=== PATIENT | female | born 1960 | race Caucasian/White ===

== ENCOUNTER 2017-02-06 08:34 | Day surgery (SDC) | payer OTHER ==
[~2017-02-06] VITALS: Ht 149.9 cm; Wt 55.7 kg
[~2017-02-06 08:34] MED LIST: ATOR20TA17
[2017-02-06] MEDS ORDERED: OMEPRAZOLE PO (09:21)
[2017-02-06 09:30] VITALS: Ht 149.9 cm; Wt 55.7 kg
[2017-02-06 09:49] VITALS: BP 134/73; PULSE 85; RESP 16
[2017-02-06] MEDS ORDERED: MIDAZOLAM 1 MG/ML 2 ML INJ ONE ×2 (11:10)
[2017-02-06] MEDS ORDERED: FENTAnyl 50 MCG/ML VIAL ONE (11:10)
--- NOTE | 2017-02-06 11:10 | OPPN ---
Date/Time of Note Date/Time of Note DATE: 02/06/17 TIME: 11:08 Operative Report Preoperative Diagnosis Abdominal pain Chronic heartburn Screening colonoscopy Postoperative Diagnosis Gastroesophageal reflux disease Gastritis with erosions Internal hemorrhoids No colon neoplasm is identified Operation/Procedure Performed Esophagogastroduodenoscopy and biopsy Colonoscopy ] Surgeon see signature line security assistant None Anesthesia: moderate sedation Estimated blood loss: none Transfusion Required none Specimen Gastric mucosal biopsy Grafts/Implants none Complications none NAN DIAZ MD Feb 06, 2017 11:10
[2017-02-06 11:30] VITALS: BP 108/58; RESP 11
--- NOTE | 2017-02-06 12:06 | GILP ---
DATE OF PROCEDURE: 02/06/2017 PROCEDURE PERFORMED: 1. Esophagogastroduodenoscopy and biopsy. 2. Colonoscopy. SURGEON: Clarence Sanchez MD. PREOPERATIVE DIAGNOSIS: 1. Abdominal pain. 2. Chronic heartburn. 3. Screening colonoscopy. POSTOPERATIVE DIAGNOSES: 1. Gastroesophageal reflux disease. 2. Gastritis with erosions. 3. Gastric mucosal biopsies were taken for Helicobacter pylori test. 4. Colonoscopy all the way to the cecum. 5. Internal hemorrhoids. 6. No colon neoplasm was identified. INDICATION: Ms Alice Josue is a 56-year-old female patient who had upper abdominal pain and chronic heartburn not responding to therapy. She also needed screening colonoscopy. The procedures and possible complications were well explained to the patient. She understood and consented to the procedures. DESCRIPTION OF PROCEDURE: Under the influence of fentanyl and Versed, the endoscope was carefully inserted into the esophagus under direct vision. It was advanced to the stomach, into the pylorus, into the duodenal bulb, and descending duodenum. FINDINGS: Esophagus: The patient had gastroesophageal reflux disease. Stomach: She had gastritis with erosions. The gastric mucosal biopsies were taken for H pylori test. Duodenum was normal. DESCRIPTION OF PROCEDURE: The colonoscope was carefully introduced in the rectum. Under direct vision, it was advanced all the way to the cecum. FINDING: The patient had internal hemorrhoids. No colon neoplasm was identified. She tolerated the procedures very well. There was no complication from the procedures. At the end of procedure, she was awake with stable vital signs, and she was discharged home in the care of her family. IMPRESSION: Please see postoperative diagnoses. PLAN: 1. Omeprazole 40 mg p.o. q.a.m. 2. Zantac 300 mg p.o. q.h.s. 3. Await H pylori test report. 4. Next screening colonoscopy in 10 years. Dictated By: MD ROMEO Loyola/royce/germania /Document#: [id number]
== END 2017-02-06 11:41 | disposition home or self-care (01) ==
LOC: GIL 08:34
PROVIDERS: ATTEND Internal Medicine Gastroenterology
DX: R19.4 Change in bowel habit (principal); K21.9 Gastro-esophageal reflux disease without esophagitis; K29.60 Other gastritis without bleeding; K64.8 Other hemorrhoids
CPT/HCPCS: 43239; 45378; 87081; J2250; J3010; Z7610

== ENCOUNTER 2018-10-04 15:27 | Observation (INO) | payer OTHER ==
[~2018-10-04] VITALS: Ht 149.9 cm; Wt 53.6 kg
[~2018-10-04 15:27] MED LIST changes: -ATOR20TA17; +OMEPRAZOLE PO
[2018-10-04 15:30] VITALS: Ht 149.9 cm; Wt 53.6 kg
[2018-10-04 16:07] VITALS: PULSE 90
[2018-10-04 16:09] VITALS: PULSE 90
[2018-10-04] MEDS ORDERED: morphine 2 MG INJ IV PRN (17:00)
[2018-10-04] MEDS ORDERED: HYDROCODONE/APAP (5/325) TAB PO PRN (17:00)
[2018-10-04] MEDS ORDERED: NACL 0.9% 3 ML SYG IV SCH (17:00)
[2018-10-04] MEDS ORDERED: NITROGLYCERIN (SL) 0.4 MG TAB SL PRN (17:00)
[2018-10-04] MEDS ORDERED: ZOLPIDEM 5 MG TAB PO PRN (17:00)
[2018-10-04] MEDS ORDERED: ONDANSETRON 4 MG INJ IV PRN (17:00)
[2018-10-04] MEDS ORDERED: ACETAMINOPHEN 325 MG TAB PO PRN (17:00)
[2018-10-04] MEDS ORDERED: DOCUSATE SODIUM 100 MG CAP PO PRN (17:00)
[2018-10-04 17:56] VITALS: BP 126/80; PULSE 88; RESP 18
[2018-10-04] MEDS ORDERED: LORA0.5T PO (18:21)
[2018-10-04] MEDS ORDERED: ALPR0.254 PO (18:21)
--- NOTE | 2018-10-04 18:38 | HP ---
Date/Time of Note Date/Time of Note DATE: 10/04/18 TIME: 18:34 Assessment/Plan VTE Prophylaxis Pharmacological prophylaxis: NA/contraindicated Pharm contraindication: low risk/ambulating Lines/Catheters IV Catheter Type (from Nrs): Saline Lock Urinary Cath still in place: No Assessment/Plan Hospital Course 1. Atypical chest pain likely secondary to panic attacks and anxiety Patient description of pain as she is about to fall asleep with generalized tightness in her chest sweaty palms as well as feelings of anxiety are consistent with panic attack According to daughter patient never had anxiety prior to her menopause Patient would likely benefit from hormone replacement therapy and should follow- up with an bakeshop cleaner or functional medicine physician Echo and troponins 2. Insomnia Ativan 1 mg p.o. nightly Prophylaxis: Ambulation HPI/ROS Admit Date/Time Admit Date/Time October 04, 2018 at 15:27 Hx of Present Illness Patient is a 57-year-old female with no significant medical history, patient presents with several weeks of increased anxiety as well as insomnia. Patient reports feeling tight chested with chest pain over the last several nights as well as sweating palms and feet. Patient has no cardiac history with no significant medical history. Patient has no history of anxiety but has become anxious since going into menopause. Patient denies radiation of the pain, family has reported attempts to help her anxiety with natural remedies with no success. Patient was given Ativan 0.5 mg which has not helped her falling asleep. Patient was transferred due to capitation, patient had no evidence of ACS at outside facility. ROS Constitutional: no complaints, improved Eyes: no complaints ENT: no complaints Respiratory: no complaints, pleuritic pain, shortness of breath Cardiovascular: chest pain Gastrointestinal: no complaints Genitourinary: no complaints Musculoskeletal: no complaints Skin: no complaints Neurologic: no complaints Endocrine: no complaints Lymphatic: no complaints Psychological: anxiety Immunologic: no complaints PMH/Family/Social Past Medical History Arthritis Medications Current Medications IV Flush (NS 3 ml) 3 ml PER PROTOCOL IV ; Start 10/04/18 at 17:00 Ondansetron HCl (Zofran Inj) 4 mg Q6H PRN IV NAUSEA/VOMITING; Start 10/04/18 at 17:00 Acetaminophen (Tylenol Tab) 650 mg Q6H PRN PO .PAIN 1-3 OR TEMP; Start 10/04/18 at 17:00 Acetaminophen/ Hydrocodone Bitart (Nicholson (5/325)) 1 tab Q6H PRN PO .MOD PAIN 4- 6; Start 10/04/18 at 17:00 Morphine Sulfate (morphine) 2 mg Q4H PRN IV .SEVERE PAIN 7-10; Start 10/04/18 at 17:00 Docusate Sodium (Colace) 100 mg Q12H PRN PO .CONSTIPATION; Start 10/04/18 at 17:00 Zolpidem Tartrate (Ambien) 5 mg QHS PRN PO .INSOMNIA; Start 10/04/18 at 17:00 Enoxaparin Sodium (Lovenox) 40 mg DAILY SC ; Start 10/05/18 at 09:00 Aspirin (Aspirin) 81 mg DAILY PO ; Start 10/06/18 at 09:00 Carvedilol (Coreg) 6.25 mg BID PO ; Start 10/04/18 at 21:00 Nitroglycerin (Nitroglycerin (Sl Tab) 0.4 Mg) 1 tab Q5M PRN SL CHEST PAIN; Start 10/04/18 at 17:00 Coded Allergies: Penicillins (Verified Allergy, Unknown, 02/06/17) Past Surgical History Past Surgical Hx: no surgical history Family History Significant Family History: no pertinent family hx Social History Alcohol Use: rarely Smoking Status: Never smoker Drug Use: none Exam/Review of Systems Vital Signs Vitals Vital Signs Date Temp Pulse Resp B/P (MAP) Pulse Ox O2 O2 Flow FiO2 Time Delivery Rate 10/04/18 98.6 88 18 126/80 98 17:56 (95) Exam Constitutional: alert, oriented Respiratory: clear to auscultation Cardiovascular: regular rate and rhythm Gastrointestinal: soft; No distended Musculoskeletal: nl extremities to inspection SUE PARRISH October 04, 2018 18:38
[2018-10-04 19:49] VITALS: BP 137/67; PULSE 92; RESP 18
[2018-10-04 20:00] VITALS: PULSE 98
[2018-10-04] MEDS ORDERED: LORAZEPAM 1 MG TAB PO SCH (21:00)
[2018-10-05] VITALS (8 sets, daily range): BP systolic 103–124; BP diastolic 60–75; PULSE 62–92; RESP 17–18
[2018-10-05] MEDS ORDERED: ENOXAPARIN 40 MG/0.4 ML SYG SC SCH (09:00)
--- NOTE | 2018-10-05 10:22 | PDOCDIS ---
Discharge Instructions CONDITION [id number] Patient Condition: [id number] Good HOME CARE INSTRUCTIONS: Uklmi2Sm Diet Instructions: [id number] Regular ACTIVITY: [id number] Activity Restrictions: [id number] No Restrictions FOLLOW UP/APPOINTMENTS Follow-up Plan FOLLOW UP WITH YOUR PCP AND AN MEAT STUFFER OR FUNCTIONAL MEDICINE PHYSICIAN FOR EVALUATION OF HORMONE REPLACEMENT THERAPY SUE PARRISH October 05, 2018 10:21
--- NOTE | 2018-10-05 11:03 | RADRPT ---
Echocardiogram Report Patient Name: Leah MORALES ID: [id number] : 1960 (57y 12m)Study Date: 10/05/2018 7:26:43 AM Gender: FAccession #: [id number] Tech: Anna Moffett [facility] Location: 51 Ref.Physician: SUE PARRISH Height(Cm): BSA: Weight(Kg): Quality: AdequateOrder Physician: SUE PARRISH Account #: Procedures: Echocardiographic Report: Transthoracic echocardiogram with complete 2D, M-Mode, and doppler examination. Indications: Chest Pain. Measurements: 2D/M Mode Doppler Measurement Value Normal Range Measurement Value Normal Range LVIDd 2D 3.5 [ 3.8 - 5.2 ] cm AV Peak Jose 1.0 [ 100.0 - 170.0 ] cm/sec LVIDs 2D 2.2 [ 2.2 - 3.5 ] cm AV Peak PG 4.0 [ 2.0 - 9.0 ] mmHg LVPWd 2D 1.0 [ 0.6 - 0.9 ] cm LVOT Peak Jose 0.8 [ 70.0 - 110.0 ] cm/sec IVSd 2D 1.0 [ 0.6 - 0.9 ] cm LVOT Peak PG 2.0 [ 2.0 - 6.0 ] mmHg AoR Diam 2D 2.8 [ 2.3 - 3.1 ] cm MV E Peak Jose 0.4 [ 60.0 - 130.0 ] cm/sec EDV 2D 50.5 [ 46.0 - 106.0 ] ml MV A Peak Jose 0.7 [ 100.0 - 120.0 ] cm/sec ESV 2D 16.4 [ 14.0 - 42.0 ] ml MV E/A 0.7 [ 0.8 - 1.5 ] ratio EF 2D 67.5 [ 54.0 - 74.0 ] percent MV Decel Time 127 [ 104 - 258 ] msec LA Dimen 2D 1.9 [ 2.7 - 3.8 ] cm Lat E` Jose 0.1 [ 10.0 - 15.0 ] cm/sec Lateral E/E` 7.4 [ 1.0 - 2.0 ] ratio MV E/A 0.7 [ 0.8 - 1.5 ] ratio Findings: Left Ventricle: Lower limits of normal systolic function. Normal left ventricular cavity size. Normal left ventricular wall thickness. Ejection fraction is visually estimated at 45-50 %. Tissue Doppler/Mitral Doppler indices are consistent with impaired relaxation (Stage I diastolic dysfunction). These segments of the LV are hypokinetic apical septum. Right Ventricle: Normal right ventricular size. Normal right ventricular systolic function. Left Atrium: The left atrium is normal in size. Right Atrium: The right atrium is normal in size. Mitral Valve: Normal appearance and function of the mitral valve with trace physiologic regurgitation. Aortic Valve: Normal appearance of the aortic valve. No significant aortic stenosis or insufficiency. Tricuspid Valve: Normal appearance of the tricuspid valve. Unable to obtain RVSP due to minimal presence of tricuspid regurgitation. Pulmonic Valve: Pulmonic valve not well visualized. Pericardium: Normal pericardium with no significant pericardial effusion. Pleural effusion seen. Aorta: Normal aortic root. IVC: Normal size and normal respiratory collapse consistent with normal right atrial pressure. Conclusions: Lower limits of normal systolic function. Normal left ventricular cavity size. Normal left ventricular wall thickness. Ejection fraction is visually estimated at 45-50 %. Tissue Doppler/Mitral Doppler indices are consistent with impaired relaxation (Stage I diastolic dysfunction). These segments of the LV are hypokinetic apical septum. Normal appearance and function of the mitral valve with trace physiologic regurgitation. Normal appearance of the aortic valve. No significant aortic stenosis or insufficiency. Normal appearance of the tricuspid valve. Unable to obtain RVSP due to minimal presence of tricuspid regurgitation. Electronically Signed By: Rebel Gomez 2018-10-05 11:02:47 PDT
[2018-10-05] MEDS ORDERED: CARV6.2579 PO (15:24)
[2018-10-05] MEDS ORDERED: LORA1TAB PO (15:25)
--- NOTE | 2018-10-05 15:30 | DS ---
Date/Time of Note Date/Time of Note DATE: 10/05/18 TIME: 15:20 Discharge Summary Admission/Discharge Info Admit Date/Time October 04, 2018 at 15:27 Discharge Date/Time October 05, 2018 Discharge Diagnosis 1. Atypical chest pain secondary to panic attacks and anxiety Patient description of pain as she is about to fall asleep with generalized tightness in her chest sweaty palms as well as feelings of anxiety are consistent with panic attack According to daughter patient never had anxiety prior to her menopause Patient would likely benefit from hormone replacement therapy and should follow- up with an welfare visitor or functional medicine physician ACS ruled out 2. Mild CHF Echo shows an EF at the lower end of normal DC with Coreg Outpatient cardiology work-up 3. Insomnia Ativan 1 mg p.o. nightly Patient Condition: Good Hospital Course Patient is a 57-year-old female with no significant medical history, patient presents with several weeks of increased anxiety as well as insomnia. Patient reports feeling tight chested with chest pain over the last several nights as well as sweating palms and feet. Patient has no cardiac history with no significant medical history. Patient has no history of anxiety but has become anxious since going into menopause. Patient denies radiation of the pain, family has reported attempts to help her anxiety with natural remedies with no success. Patient was given Ativan 0.5 mg which has not helped her falling asleep. ACS was ruled out with negative troponins, echo showed an EF at the lower end of normal. Patient did sleep well with Ativan 1 mg requested upon DC. Patient anxiety is like secondary to menopause will likely be a candidate for hormonal placement therapy. Patient to have an outpatient cardiac work-up for mild decrease in EF. Patient stable for DC, on the day of discharge patient's vitals, labs and physical exam are stable. Home Meds Reported Medications Alprazolam* (Alprazolam*) 0.25 Mg Tablet, 0.25 MG PO BID, TAB 10/04/18 Lorazepam* (Lorazepam*) 0.5 Mg Tablet, 0.5 MG PO Q6 PRN for ANXIETY, TAB 10/04/18 [Omeprazole] No Conflict Check, PO 02/06/17 Follow-up Plan FOLLOW UP WITH YOUR PCP AND AN FIRE EXTINGUISHER REPAIRER INSPECTOR OR FUNCTIONAL MEDICINE PHYSICIAN FOR EVALUATION OF HORMONE REPLACEMENT THERAPY Primary Care Provider Not On Staff Doctor Time spent on discharge: > 30 minutes SUE PARRISH October 05, 2018 15:30
[2018-10-06] MEDS ORDERED: ASPIRIN 81 MG TAB PO SCH (09:00)
== END 2018-10-05 17:29 | disposition home or self-care (01) ==
LOC: TEL 15:27 → INTOOBSV 15:27
PROVIDERS: ADMIT Internal Medicine; ATTEND Internal Medicine
DX: F41.0 Panic disorder [episodic paroxysmal anxiety] (principal); R07.89 Other chest pain; I50.9 Heart failure, unspecified; G47.00 Insomnia, unspecified; Z79.82 Long term (current) use of aspirin
CPT/HCPCS: 80048; 80061; 83036; 83735; 84100; 84436; 84479; 84484; 85025; 93306; Z7500; Z7610; 99217; G0378

== ENCOUNTER 2018-10-20 05:43 | Observation (INO) | payer OTHER ==
[~2018-10-20] VITALS: Ht 152.4 cm; Wt 52.1 kg
[2018-10-20] VITALS (11 sets, daily range): BP systolic 121–140; BP diastolic 68–101; PULSE 58–100; RESP 16–18; Ht 152.4 cm; Wt 52.1 kg
[~2018-10-20 05:43] MED LIST changes: +ALPR0.254 PO; +CARV6.2579 PO; +LORA0.5T PO; +LORA1TAB PO
[2018-10-20] MEDS ORDERED: morphine 2 MG INJ IV PRN (09:00)
[2018-10-20] MEDS ORDERED: NACL 0.9% 3 ML SYG IV SCH (09:00)
[2018-10-20] MEDS ORDERED: NITROGLYCERIN (SL) 0.4 MG TAB SL PRN (09:00)
[2018-10-20] MEDS ORDERED: ACETAMINOPHEN 325 MG TAB PO PRN (09:00)
[2018-10-20] MEDS ORDERED: ONDANSETRON 4 MG INJ IV PRN (09:00)
--- NOTE | 2018-10-20 09:13 | HP ---
Date/Time of Note Date/Time of Note DATE: 10/20/18 TIME: 09:08 Assessment/Plan VTE Prophylaxis Pharmacological prophylaxis: LMWH Assessment/Plan Hospital Course SUBJECTIVE: Patient walking in the room, feeling anxious/hyperventilating, having left-sided chest pain OBJECTIVE: Vital signs-see below PHYSICAL EXAM: Constitutional: Adequately built,not in acute distress. HEENT: Head atraumatic and normocephalic. Eyes: Extraocular muscles intact. Anicteric sclerae. Pupils equal bilaterally, reactive to light. NECK: Supple without lymph node.+JVP CHEST: Clear and good breath sounds equally. No wheezing. No rhonchi. HEART: S1, S2. Regular rate and rhythm. ABDOMEN: Soft/non tender with no rebound tenderness. Bowel sounds were present. EXTREMITIES: No cyanosis, clubbing or edema. NEUROLOGIC: Alert and oriented x3. Anxious. No focal deficit. No sensory deficit. PSYCHOSOCIAL: No signs of depression. INTEGUMENTARY: No open wounds. ASSESSMENT AND PLAN:57 yo F w/htn,dlp,anxiety disorders here w/1 mos duration of left sided cp/sob/diaphoresis/anxiety... Chest pain/SOB, rule out acute coronary syndrome vs HF vs anxiety-related symptoms.. -Serial troponin, telemetry monitoring, nuclear medicine Lexiscan stress testing (discussion with carpenter assembler). -Cardiology consultation -Aspirin prophylaxis - TTE/chest x-ray. Essential hypertension -Stable -Resume beta-blockers Dyslipidemia -Resume statin Anxiety disorders -this could be exaggerating CP syndrome -PRN Xanax. We will also start trazodone. -Pt also seems like having panic attacks-Inpatient face to face psych eval requested DVT prophylaxis: Lovenox PUD prophylaxis: Pepcid as patient get stomach upset with aspirin. We will admit patient to telemetry unit for observation. We will rule out acute coronary syndrome with serial troponin and a nuclear medicine Lexiscan stress test. We will follow-up TTE. If no acute inpatient cardiac work-up needed, likely DC planning in a.m. with outpatient follow-up. Approximately 60 m spent on this history and physical. Patient was seen in collaboration with Dr. COLIN/BESS Admit Date/Time Admit Date/Time Oct 20, 2018 at 06:13 Hx of Present Illness This is a 57-year-old Slovenian-speaking female with a history of hypertension, dyslipidemia, recently diagnosed anxiety disorders, who has been having exertional chest pain mostly left-sided associated with shortness of breath, diaphoresis, going on for a month duration. Patient was seen in outpatient setting and was told that may be anxiety and hyperventilation and she was started on Xanax which was not helping her. She was also started on trazodone lately per patient which she was not taking. Patient was initially seen at [facility] where her initial troponin, EKG negative for acute cardiovascular events. Her labs were unremarkable at outside hospital with a normal creatinine and liver function. She also had a normal BNP. Stable vital signs. Patient was transferred to [facility] for insurance capitation. At my encounter with the patient, she is still having left-sided chest pain, having reported breathing difficulties however saturating normally on room air, appears anxious. She currently does not have any lower extremity swelling although she reported having it present about 2 weeks ago. She denied nausea, vomiting, abdominal pain, loss of consciousness, dizziness, numbness, tingling, fever, chills, diarrhea or other constitutional symptoms. ROS A 12 point review of system was assessed and is negative other than what is mentioned in the HPI PMH/Family/Social Past Medical History See HPI Medications Current Medications Carvedilol (Coreg) 6.25 mg BID PO ; Start 10/20/18 at 09:00; Status UNV Famotidine (Pepcid) 20 mg BID PO ; Start 10/20/18 at 09:00; Status UNV IV Flush (NS 3 ml) 3 ml PER PROTOCOL IV ; Start 10/20/18 at 09:00; Status UNV Ondansetron HCl (Zofran Inj) 4 mg Q6H PRN IV NAUSEA/VOMITING; Start 10/20/18 at 09:00; Status UNV Acetaminophen (Tylenol Tab) 650 mg Q6H PRN PO .PAIN 1-3 OR TEMP; Start 10/20/18 at 09:00; Status UNV Morphine Sulfate (morphine) 2 mg Q4H PRN IV .SEVERE PAIN 7-10; Start 10/20/18 at 09:00; Status UNV Enoxaparin Sodium (Lovenox) 40 mg DAILY SC ; Start 10/20/18 at 09:00; Status UNV Aspirin (Aspirin) 81 mg DAILY PO ; Start 10/20/18 at 09:00; Status UNV Nitroglycerin (Nitroglycerin (Sl Tab) 0.4 Mg) 1 tab Q5M PRN SL ANGINA; Start 10/20/18 at 09:00; Status UNV Coded Allergies: Penicillins (Verified Allergy, Unknown, 02/06/17) Past Surgical History None Past Surgical Hx: no surgical history Family History Significant Family History: no pertinent family hx Social History Denied history of alcohol, smoking or illicit drug use Exam/Review of Systems Vital Signs Vitals Vital Signs Date Temp Pulse Resp B/P (MAP) Pulse Ox O2 O2 Flow FiO2 Time Delivery Rate 10/20/18 75 08:24 10/20/18 97.6 17 138/78 96 07:24 (98) JU JOSÉ V. CONNECTION WORKER Oct 20, 2018 09:13
[2018-10-20] MEDS: FAMOTIDINE 20 MG TAB PO SCH ×2 (09:29→22:04)
[2018-10-20] MEDS: ASPIRIN 81 MG TAB PO SCH (09:29)
[2018-10-20] MEDS: ENOXAPARIN 40 MG/0.4 ML SYG SC SCH (09:52)
--- NOTE | 2018-10-20 13:06 | CONS ---
Assessment/Plan Assessment/Plan Hospital Course (Demo Recall) Chest pain/dyspnea: Atypical and seems to be related to her underlying anxiety/insomnia. No exertional symptoms. Trops negative. She has a LBBB of u nknown significance but no evidence of NE and echo from 09/2018 on my read appears to have a normal EF. Regardless a stress test is appropriate considering her risk factors so will start with that. If normal, psych eval is appropriate LBBB: unclear significance. Preserved EF. Anxiety/severe insomnia: ?manic. Will defer to psych HTN HL -MPI today -psych eval -coreg 6.25mg BID Consultation Date/Type/Reason Admit Date/Time Oct 20, 2018 at 06:13 Date of Consultation: Oct 20, 2018 Type of Consult Cardiology Reason for Consultation chest pain Requesting Provider: JU JOSÉ NP Date/Time of Note DATE: 10/20/18 TIME: 12:57 Hx of Present Illness 57 yo F with a h/o HTN, HL, and recent diagnosis of anxiety, who presented initially to [facility] with dyspnea, anxiety, chest pain. She was then t ransferred here for insurance purposes. A suit attendant was used. She notes three weeks of severe insomnia and she thinks that she hasnt slept more than a total of 2 hours in 3 weeks. Her notes that she paces around the house constantly in a panic. She then starts to have hyperventilation and eventually has chest pressure and left arm numbness as well as numbness of the left side of her head. No prior cardiac history or psych history. Her brother in law 2 months ago but she does not think this has affected her. Currently no symptoms but remains very anxious. Her notes that this has been the best she has been in 3 weeks. She does not have exertional chest pain. Of note she was ruled out for NE here 10/04/18 and echo was read as 45-50% but upon my review it appears normal except for the fact that it was a poor study. per hPI Past Medical History per hPI Home Meds Active Scripts Lorazepam* (Lorazepam*) 1 Mg Tablet, 1 MG PO HS PRN for INSOMNIA, #30 TAB Prov:SUE PARRISH 10/05/18 Carvedilol* (Carvedilol*) 6.25 Mg Tablet, 6.25 MG PO BID, #60 TAB Prov:SUE PARRISH 10/05/18 Reported Medications Alprazolam* (Alprazolam*) 0.25 Mg Tablet, 0.25 MG PO BID, TAB 10/04/18 Lorazepam* (Lorazepam*) 0.5 Mg Tablet, 0.5 MG PO Q6 PRN for ANXIETY, TAB 10/04/18 [Omeprazole] No Conflict Check, PO 02/06/17 Medications Current Medications Carvedilol (Coreg) 6.25 mg BID PO Last administered on 10/20/18at 09:29; Admin Dose 6.25 MG; Start 10/20/18 at 09:00 Famotidine (Pepcid) 20 mg BID PO Last administered on 10/20/18at 09:29; Admin Dose 20 MG; Start 10/20/18 at 09:00 IV Flush (NS 3 ml) 3 ml PER PROTOCOL IV ; Start 10/20/18 at 09:00 Ondansetron HCl (Zofran Inj) 4 mg Q6H PRN IV NAUSEA/VOMITING; Start 10/20/18 at 09:00 Acetaminophen (Tylenol Tab) 650 mg Q6H PRN PO .PAIN 1-3 OR TEMP; Start 10/20/18 at 09:00 Morphine Sulfate (morphine) 2 mg Q4H PRN IV .SEVERE PAIN 7-10; Start 10/20/18 at 09:00 Enoxaparin Sodium (Lovenox) 40 mg DAILY SC Last administered on 10/20/18at 09:52; Admin Dose 40 MG; Start 10/20/18 at 09:00 Aspirin (Aspirin) 81 mg DAILY PO Last administered on 10/20/18at 09:29; Admin Dose 81 MG; Start 10/20/18 at 09:00 Nitroglycerin (Nitroglycerin (Sl Tab) 0.4 Mg) 1 tab Q5M PRN SL ANGINA; Start 10/20/18 at 09:00 Trazodone HCl (Desyrel) 50 mg HS PO ; Start 10/20/18 at 21:00 Allergies: Coded Allergies: Penicillins (Verified Allergy, Unknown, 02/06/17) Past Surgical History Past Surgical Hx: no surgical history Social History Smoking Status: Never smoker Exam/Review of Systems Vital Signs Vitals Vital Signs Date Temp Pulse Resp B/P (MAP) Pulse Ox O2 O2 Flow FiO2 Time Delivery Rate 10/20/18 76 12:27 10/20/18 98.3 16 140/68 97 11:17 (92) Exam Constitutional: alert, oriented Psych: anxiety Head: normocephalic, atraumatic Neck: supple; No jvd Respiratory: clear to auscultation; No crackles/rales, No diminished breath sounds Cardiovascular: regular rate and rhythm, edema Gastrointestinal: soft, non-tender; No distended Neurological: nl mental status, nl speech Labs Results 24hrs Laboratory Tests Test 10/20/18 09:23 Creatine Kinase 49 Creatine Kinase Index 2.0 Creatinine Kinase MB (Mass) 0.99 Troponin I < 0.012 Medications Medications Current Medications Carvedilol (Coreg) 6.25 mg BID PO Last administered on 10/20/18at 09:29; Admin Dose 6.25 MG; Start 10/20/18 at 09:00 Famotidine (Pepcid) 20 mg BID PO Last administered on 10/20/18 09:29; Admin Dose 20 MG; Start 10/20/18 at 09:00 IV Flush (NS 3 ml) 3 ml PER PROTOCOL IV ; Start 10/20/18 at 09:00 Ondansetron HCl (Zofran Inj) 4 mg Q6H PRN IV NAUSEA/VOMITING; Start 10/20/18 at 09:00 Acetaminophen (Tylenol Tab) 650 mg Q6H PRN PO .PAIN 1-3 OR TEMP; Start 10/20/18 at 09:00 Morphine Sulfate (morphine) 2 mg Q4H PRN IV .SEVERE PAIN 7-10; Start 10/20/18 at 09:00 Enoxaparin Sodium (Lovenox) 40 mg DAILY SC Last administered on 10/20/18at 09:52; Admin Dose 40 MG; Start 10/20/18 at 09:00 Aspirin (Aspirin) 81 mg DAILY PO Last administered on 10/20/18at 09:29; Admin Dose 81 MG; Start 10/20/18 at 09:00 Nitroglycerin (Nitroglycerin (Sl Tab) 0.4 Mg) 1 tab Q5M PRN SL ANGINA; Start 10/20/18 at 09:00 Trazodone HCl (Desyrel) 50 mg HS PO ; Start 10/20/18 at 21:00 PITER MATUTE 5, 2019 13:06
[2018-10-20] MEDS ORDERED: REGADENOSON 0.4 MG/5 ML SYG ONE (13:31)
--- NOTE | 2018-10-20 16:23 | PSY ---
Date/Time of Note Date/Time of Note DATE: 10/20/18 TIME: 16:22 Psychiatric Subjective Eval Consent Pt consented to telemedicine: No Subjective Evaluation Patient location: inpatient History of present illness Patient is a 57-year-old British-speaking female, Vieira speaks a little bit of Sinhala, has underlying medical history of hypertension, dyslipidemia,, who is admitted with chest pain mostly left-sided associated with shortness of breath, diaphoresis, . On a [id number] evaluation, patient's states she is very anxious especially to was sleeping time patient denies feeling hopeless or helpless she denies suicidal ideation contracted for safety. Hospitalization: other Allergies: Coded Allergies: Penicillins (Verified Allergy, Unknown, 02/06/17) Substance Abuse Substance abuse history: No Prior substance abuse treatmen: No Psychiatric Objective Eval Mental Status Examination: Laboratory Results Laboratory Tests Test 10/20/18 09:23 10/20/18 15:03 Creatine Kinase 49 IU/L 45 IU/L Creatine Kinase Index 2.0 1.9 Creatinine Kinase MB (Mass) 0.99 ng/ml 0.87 ng/ml Troponin I < 0.012 ng/ml < 0.012 ng/ml Assessment and Plan Assessment/Diagnosis Diagnosis Anxiety NOS Recommendation/Plan Medication Management BuSpar 5 mg daily twice a day, and Ativan 1 mg at bedtime Psychotherapy Provide supportive therapy Discharge Disposition: Other Legal Status: Voluntary (Patient does not meet criteria for 5150 hold) JAVIER SALVADOR NP Oct 20, 2018 16:23
[2018-10-20] MEDS ORDERED: traZODone 50 MG TAB PO SCH (21:00)
[2018-10-20] MEDS ORDERED: LORAZEPAM 0.5 MG TAB PO SCH (21:00)
[2018-10-20] MEDS: BUSPIRONE 5 MG TAB PO SCH (22:04)
[2018-10-21 01:15] VITALS: BP 106/68; PULSE 81; RESP 18
[2018-10-21 07:50] VITALS: BP 125/74; PULSE 74; RESP 18
[2018-10-21] MEDS: ASPIRIN 81 MG TAB PO SCH (08:13)
[2018-10-21] MEDS: FAMOTIDINE 20 MG TAB PO SCH (08:14)
[2018-10-21] MEDS: ENOXAPARIN 40 MG/0.4 ML SYG SC SCH (08:17)
[2018-10-21] MEDS: BUSPIRONE 5 MG TAB PO SCH (08:24)
[2018-10-21] MEDS ORDERED: IBUPROFEN 400 MG TAB PO PRN (10:00)
--- NOTE | 2018-10-21 10:19 | PDOCDIS ---
Discharge Instructions CONDITION [id number] Patient Condition: [id number] Stable HOME CARE INSTRUCTIONS: [id number] Diet Instructions: [id number] Reduced Calorie [id number] Your diet recommendation is: [id number] Stay away from refined sugar FOLLOW UP/APPOINTMENTS Follow-up Plan Follow-up with primary care physician in 1 week. If left knee pain gets worse, your primary care doctor can refer you to an outpatient orthopedic formal evaluation. JU JOSÉ NP Oct 21, 2018 10:19
[2018-10-21] MEDS ORDERED: FAMO20TA18 PO (10:22)
[2018-10-21] MEDS ORDERED: BUSP5TAB2 PO (10:22)
[2018-10-21] MEDS ORDERED: IBUP-1541 PO (10:22)
[2018-10-21] MEDS ORDERED: DICL100G33 TP (10:22)
--- NOTE | 2018-10-21 10:43 | DS ---
Date/Time of Note Date/Time of Note DATE: 10/21/18 TIME: 10:42 Discharge Summary Admission/Discharge Info Admit Date/Time Oct 20, 2018 at 06:13 Discharge Date/Time Discharge Diagnosis Atypical chest pain with panic anxiety attacks. ACS ruled out Essential hypertension Dyslipidemia Anxiety/insomnia/panic attacks Prediabetes Patient Condition: Stable Consults Procedures 10/20/2018: Gyae myocardial perfusion study: IMPRESSION: 1. No evidence of stress-induced ischemia. 2. No wall motion abnormalities. 3. The left ventricle ejection fraction at stress is 64%. A call report was made to Dr. Herrera at 03:29 p.m. on October 20, 2018. RPTAT: HH .Alice Amor MD, MD Date Time Electronically viewed and signed by .Alice Amor MD, MD on 10/20/2018 15:35 .L/ CC: JU JOSÉ NP [phone] Hx of Present Illness This is a 57-year-old Cypriot-speaking female with a history of hypertension, dyslipidemia, recently diagnosed anxiety disorders, who has been having exertional chest pain mostly left-sided associated with shortness of breath, diaphoresis, going on for a month duration. Patient was seen in outpatient setting and was told that may be anxiety and hyperventilation and she was started on Xanax which was not helping her. She was also started on trazodone lately per patient which she was not taking. Patient was initially seen at [facility] where her initial troponin, EKG negative for acute cardiovascular events. Her labs were unremarkable at outside hospital with a normal creatinine and liver function. She also had a normal BNP. Stable vital signs. Patient was transferred to [facility] for insurance capitation. At my encounter with the patient, she is still having left-sided chest pain, having reported breathing difficulties however saturating normally on room air, appears anxious. She currently does not have any lower extremity swelling although she reported having it present about 2 weeks ago. She denied nausea, vomiting, abdominal pain, loss of consciousness, dizziness, numbness, tingling, fever, chills, diarrhea or other constitutional symptoms. Hospital Course 57 yo F w/htn,dlp,anxiety disorders here w/1 mos duration of left sided cp/sob/diaphoresis/anxiety... She was ruled out for acute coronary syndrome. She also underwent Lexiscan stress test which was negative. She did appears to have severe anxiety, inability to sleep, panic attacks which could be contributing to her atypical chest pain syndrome. Patient had psych evaluation and was started on PRN Ativan and BuSpar. Patient's symptoms resolved. She responded with NSAIDs and topical NSAIDs cream for her chronic left knee pain. Patient is stable for discharge w ith outpatient follow-up. She was recommended to have outpatient orthopedic follow-up if her knee pain gets worse. She was also noted with prediabetes with stable blood sugar. She was instructed on diet, exercise and to have follow-up labs. Patient verbalized understanding. Approximately 60 m spent on coordinating the discharge on this patient. Patient is seen in collaboration with Dr. Marie. Home Meds Active Scripts Buspirone Hcl* (Buspirone Hcl*) 5 Mg Tab, 5 MG PO BID, #60 TAB Prov:JOSÉ,JU V. THERMAL CUTTER HELPER 10/21/18 Famotidine* (Famotidine*) 20 Mg Tablet, 20 MG PO .HS, #30 TAB Prov:JOSÉJU V. THERMAL CUTTER HELPER 10/21/18 Ibuprofen* (Ibuprofen*) 400 Mg Tablet, 400 MG PO Q6H PRN for MILD PAIN(1-3) OR TEMP>38C, #30 TAB Prov:JOSÉAMANDAA V. THERMAL CUTTER HELPER 10/21/18 Diclofenac Sodium (Diclofenac Sodium) 100 Gm Gel..gram., 2 GM TP QID, #1 TUB Apply to left knee Prov:JOSÉAMANDAA V. THERMAL CUTTER HELPER 10/21/18 Lorazepam* (Lorazepam*) 1 Mg Tablet, 1 MG PO HS PRN for INSOMNIA, #30 TAB Prov:SUE PARRISH 10/05/18 Carvedilol* (Carvedilol*) 6.25 Mg Tablet, 6.25 MG PO BID, #60 TAB Prov:SUE PARRISH 10/05/18 Discontinued Reported Medications Alprazolam* (Alprazolam*) 0.25 Mg Tablet, 0.25 MG PO BID, TAB 10/04/18 Lorazepam* (Lorazepam*) 0.5 Mg Tablet, 0.5 MG PO Q6 PRN for ANXIETY, TAB 10/04/18 [Omeprazole] No Conflict Check, PO 02/06/17 Follow-up Plan Follow-up with primary care physician in 1 week. If left knee pain gets worse, your primary care doctor can refer you to an outpatient orthopedic formal evaluation. Primary Care Provider Not On Staff Doctor Pending Labs Laboratory Tests Test 10/20/18 15:03 10/21/18 04:20 Creatine Kinase 45 IU/L (23-200) Creatine Kinase Index 1.9 Creatinine Kinase MB 0.87 ng/ml (0.0-2.4) (Mass) Troponin I < 0.012 ng/ml (0.000-0.120) White Blood Count 5.0 10^3/ul (4.8-10.8) Red Blood Count 4.57 10^6/ul (4.20-5.40) Hemoglobin 13.6 g/dl (12.0-16.0) Hematocrit 40.6 % (37.0-47.0) Mean Corpuscular Volume 88.8 fl (82.0-101.0) Mean Corpuscular 29.8 pg (29.0-33.0) Hemoglobin Mean Corpuscular 33.5 g/dl (32.0-37.0) Hemoglobin Concent Red Cell Distribution 12.3 % (11.5-14.5) Width Platelet Count 323 10^3/UL (140-415) Mean Platelet Volume 9.9 fl (7.4-10.4) Immature Granulocytes % 0.200 % (0.001-0.429) Neutrophils % 63.8 % (39.0-77.0) Lymphocytes % 26.0 % (15.0-51.0) Monocytes % 8.0 % (0.0-11.0) Eosinophils % 1.2 % (0.0-7.0) Basophils % 0.8 % (0.0-2.0) Nucleated Red Blood Cells 0.0 /100WBC (0.0-0.0) % Immature Granulocytes # 0.010 10^3/ul (0.0-0.031) Neutrophils # 3.2 10^3/ul (1.6-7.5) Lymphocytes # 1.3 10^3/ul (0.8-2.9) Monocytes # 0.4 10^3/ul (0.3-0.9) Eosinophils # 0.1 10^3/ul (0.0-0.5) Basophils # 0.0 10^3/ul (0.0-0.1) Nucleated Red Blood Cells 0.0 10^3/ul (0.0-0.0) # Sodium Level 139 mmol/L (135-144) Potassium Level 3.9 mmol/L (3.5-5.1) Chloride Level 105 mmol/L (97-110) Carbon Dioxide Level 24 mmol/L (21-31) Anion Gap 10 (5-13) Blood Urea Nitrogen 11 mg/dl (7-20) Creatinine 0.65 mg/dl (0.44-1.00) Est Glomerular Filtrat > 60 mL/min (>60) Rate mL/min Glucose Level 133 mg/dl (70-220) Hemoglobin A1c 6.4 % (0-5.9) Calcium Level 9.4 mg/dl (8.4-10.2) Phosphorus Level 4.8 mg/dl (2.5-4.9) Magnesium Level 2.2 mg/dl (1.7-2.5) Total Bilirubin 0.6 mg/dl (0.2-1.3) Direct Bilirubin 0.00 mg/dl (0.00-0.20) Indirect Bilirubin 0.6 mg/dl (0-1.1) Aspartate Amino 19 IU/L (15-46) Transf (AST/SGOT) Alanine 20 IU/L (13-69) Aminotransferase (ALT/SGPT ) Alkaline Phosphatase 60 IU/L (42-121) Total Protein 6.9 g/dl (6.1-8.1) Albumin 3.9 g/dl (3.3-4.9) Globulin 3.00 g/dl (1.3-3.2) Albumin/Globulin Ratio 1.30 Triglycerides Level 173 mg/dl (0-149) Cholesterol Level 191 mg/dl (100-200) LDL Cholesterol, 105 mg/dl Calculated HDL Cholesterol 51 mg/dl (37-92) Cholesterol/HDL Ratio 3.7 RATIO Thyroid Stimulating 2.130 MIU/L (0.465-4.680) Hormone (TSH) JU JOSÉ V. [employer]ERMAL CUTTER HELPER Oct 21, 2018 10:43
[2018-10-21] MEDS ORDERED: DICLOFENAC SODIUM 1% GEL 100 GM TUBE TP SCH (11:03)
[2018-10-21 13:58] VITALS: BP 125/69; PULSE 82; RESP 18
--- NOTE | 2018-10-21 14:22 | RADRPT ---
Vent Rate: 83 bpm RR Interval: 724 msec ME Interval: 167 msec QRS Duration: 129 msec QT Interval: 378 msec QTC Interval: 444 msec P-R-T [place]: 41 - 3 - 96 degrees Sinus rhythm...normal P axis, V-rate 50- 99 Left bundle branch block...QRSd>120, broad/notched R ST elevation secondary to IVCD...Multiple VCG criteria Electronically Signed By: Enio Mcgovern
--- NOTE | 2018-10-21 15:33 | RADRPT ---
Echocardiogram Report Patient Name: Leah MORALES ID: [id number] : 1960 (58y )Study Date: 10/21/2018 11:54:04 AM Gender: FAccession #: [id number] Tech: Wolfgang Bob [facility] Location: 2268-A Ref.Physician: JU JOSÉ Height(Cm): BSA: Weight(Kg): Quality: AdequateOrder Physician: JU JOSÉ Account #: Procedures: Echocardiographic Report: Transthoracic echocardiogram with complete 2D, M-Mode, and doppler examination. Indications: Chest Pain. Measurements: 2D/M Mode Doppler Measurement Value Normal Range Measurement Value Normal Range LVIDd 2D 3.5 [ 3.8 - 5.2 ] cm AV Peak Jose 1.4 [ 100.0 - 170.0 ] cm/sec LVIDs 2D 2.5 [ 2.2 - 3.5 ] cm AV Peak PG 8.0 [ 2.0 - 9.0 ] mmHg LVPWd 2D 0.9 [ 0.6 - 0.9 ] cm LVOT Peak Jose 1.0 [ 70.0 - 110.0 ] cm/sec IVSd 2D 1.2 [ 0.6 - 0.9 ] cm LVOT Peak PG 4.0 [ 2.0 - 6.0 ] mmHg AoR Diam 2D 3.0 [ 2.3 - 3.1 ] cm MV E Peak Jose 0.6 [ 60.0 - 130.0 ] cm/sec EDV 2D 52.3 [ 46.0 - 106.0 ] ml MV A Peak Jose 0.8 [ 100.0 - 120.0 ] cm/sec ESV 2D 21.2 [ 14.0 - 42.0 ] ml MV E/A 0.8 [ 0.8 - 1.5 ] ratio EF 2D 59.5 [ 54.0 - 74.0 ] percent MV Decel Time 215 [ 104 - 258 ] msec LA Dimen 2D 2.7 [ 2.7 - 3.8 ] cm Lat E` Jose 0.1 [ 10.0 - 15.0 ] cm/sec Lateral E/E` 6.9 [ 1.0 - 2.0 ] ratio MV E/A 0.8 [ 0.8 - 1.5 ] ratio TR Peak Jose 2.3 [ 100.0 - 280.0 ] cm/sec TR Peak PG 21.0 mmHg RVSP 24.0 [ 10.0 - 36.0 ] mmHg Findings: Left Ventricle: Normal left ventricular systolic function. Normal left ventricular cavity size. Normal left ventricular wall thickness. Ejection fraction is visually estimated at 55 %. Tissue Doppler/Mitral Doppler indices are consistent with impaired relaxation (Stage I diastolic dysfunction). Right Ventricle: Normal right ventricular size. Normal right ventricular systolic function. Left Atrium: There is mild enlargement of left atrium. Right Atrium: The right atrium is normal in size. Mitral Valve: Normal appearance of the mitral valve. Normal appearance and function of the mitral valve with trace physiologic regurgitation. Aortic Valve: Normal appearance of the aortic valve. No significant aortic stenosis or insufficiency. Tricuspid Valve: Normal appearance of the tricuspid valve. The estimated Peak RVSP is 24 mmHg. There is trace tricuspid regurgitation. Pericardium: Normal pericardium with no significant pericardial effusion. Aorta: Normal aortic root. IVC: Normal size and normal respiratory collapse consistent with normal right atrial pressure. Conclusions: Normal left ventricular systolic function. Normal left ventricular cavity size. Normal left ventricular wall thickness. Ejection fraction is visually estimated at 55 %. Tissue Doppler/Mitral Doppler indices are consistent with impaired relaxation (Stage I diastolic dysfunction). No significant valvular stenosis or regurgitation seen. The estimated Peak RVSP is 24 mmHg. Normal size and normal respiratory collapse consistent with normal right atrial pressure. Electronically Signed By: Cain Herrera 2018-10-21 15:32:12 PDT
== END 2018-10-21 15:53 | disposition home or self-care (01) ==
LOC: TEL 06:13 → INTOOBSV 06:13 → TEL 06:59 → 2NE 22:20
PROVIDERS: ADMIT Hospitalist; ATTEND Hospitalist
DX: R07.89 Other chest pain (principal); F41.0 Panic disorder [episodic paroxysmal anxiety]; I10 Essential (primary) hypertension; E78.5 Hyperlipidemia, unspecified; G47.00 Insomnia, unspecified; R73.03 Prediabetes
CPT/HCPCS: 71045; 78452; 80053; 80061; 82550; 82553; 83036; 83735; 84100; 84443; 84484; 85025; 93005; 93017; 93306; A9500; A9505; J1650; J2785; Z7500; Z7610; 99217; G0378